=== PATIENT | female | born 1935 | race Caucasian/White ===

== ENCOUNTER → 2017-01-12 | Outpatient (CLI) | payer MEDICARE, BC ==
--- NOTE | 2017-01-13 09:46 | NM ---
EXAMINATION TYPE: NM bone scan whole body DATE OF EXAM: 01/12/2017 2:25 PM COMPARISON: NONE HISTORY: Osteoarthritis, M 16.11 Delayed whole-body scanning was performed following the injection of 25.4 mCi Tc 99m MDP. Images acq uired 3 hours post injection. FINDINGS: Soft tissue uptake is normal. Uptake present within the level of the greater trochanters could be due to underlying bursitis. There is uptake within the feet, ankles, knees, elbows, hands, shoulders and spine which is likely degenerative. IMPRESSION: Findings compatible with osteoarthritis and likely degenerative disc disease. Additional findings abo ve.
== END ==
LOC: RADNMMAIN 10:30
PROVIDERS: ATTEND Orthopaedic Surgery
DX: M25.551 Pain in right hip (principal); M70.61 Trochanteric bursitis, right hip
CPT/HCPCS: 78306; A9503

== ENCOUNTER 2018-08-20 14:29 | Inpatient (IN) | payer MEDICARE, BC ==
[2018-08-20] MEDS ORDERED: SODIUM CHLORIDE 0.9% 1,000 ML IV STA (14:55)
[2018-08-20] MEDS ORDERED: MORPHINE SULFATE 4 MG/ML SYRINGE IV STA (14:55)
[2018-08-20] MEDS ORDERED: ONDANSETRON 4 MG/2 ML VIAL IVP STA (14:55)
--- NOTE | 2018-08-20 15:17 | ED ---
Abdominal Pain HPI - General Chief Complaint: Abdominal Pain Stated Complaint: Vomitting, Diarrhea Time Seen by Provider: 08/20/18 14:36 Source: patient, EMS, RN notes reviewed Mode of arrival: EMS Limitations: no limitations - History of Present Illness Initial Comments: Patient 83-year-old female presented to the emergency room today with a chief complaint of symptoms of nausea vomiting diarrhea per patient states that she ate a donut at a social gathering this afternoon. She states proximal half hour later began having some symptoms of nausea and vomiting. States she had several bouts. States she was able to get home. Patient states that when she got home she began having diarrhea. She states that she noticed do so she called 911. Patient does admit that the nausea is somewhat improved. She states she still expresses abdominal pain starting on the right side of the abdomen going across. She describes it as sharp. Currently rates it a 9/10. Denies any other complaints. Patient denies any recent fever, chills, shortness of breath, chest pain, numbness or tingling, dysuria or hematuria, constipation , headaches or visual changes, or any other complaints. - Related Data Home Medications Medication Instructions Recorded Confirmed Ezetimibe [Zetia] 10 mg PO DAILY 07/14/16 08/20/18 Multivit-Min/Iron/Folic/Lutein 1 tab PO DAILY 07/14/16 08/20/18 [Centrum Silver Women Tablet] [place]-3 Fatty Acids/Fish Oil [Fish 1 cap PO BID 07/14/16 08/20/18 Oil 1,000 mg Softgel] Simvastatin [Zocor] 80 mg PO DAILY 07/14/16 08/20/18 glipiZIDE [Glucotrol] 5 mg PO DAILY 07/14/16 08/20/18 Insuln Asp Prt/Insulin Aspart 36 unit SQ HS 09/03/16 08/20/18 [NovoLOG MIX 70-30 VIAL] Insuln Asp Prt/Insulin Aspart 38 units SQ QAM 09/03/16 08/20/18 [NovoLOG MIX 70-30 VIAL] ALPRAZolam [Xanax] 0.25 mg PO BID 08/20/18 08/20/18 Donepezil [Aricept] 5 mg PO DAILY 08/20/18 08/20/18 Levothyroxine Sodium [Synthroid] 75 mcg PO DAILY 08/20/18 08/20/18 Omeprazole/Sodium Bicarbonate 1 tab PO DAILY 08/20/18 08/20/18 [Omeprazole-Bicarb 20-1,100 Cap] Allergies Allergy/AdvReac Type Severity Reaction Status Date / Time niacin Allergy the Verified 08/20/18 14:47 [From [place] feeling of Extended-Release] burning inside acetaminophen AdvReac Itching Verified 08/20/18 14:47 [From Darvocet-N] propoxyphene AdvReac Itching Verified 08/20/18 14:47 [From Darvocet-N] paper tape Allergy Rash/Hives Uncoded 08/20/18 14:38 Review of Systems ROS Statement: Those systems with pertinent positive or pertinent negative responses have been documented in the HPI. ROS Other: All systems not noted in ROS Statement are negative. 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 History of Any Multi-Drug Resistant Organisms: None Reported Past Surgical History: Appendectomy, Hysterectomy, Orthopedic Surgery, Tonsillectomy Additional Past Surgical History / Comment(s): 07/16/16 Acromioplasty excision distal end clavicle and rotator cuff repair L shoulder. Other surgical hx: Bilateral cataract removal, bilateral surgery for occular hemorrhages. Past Anesthesia/Blood Transfusion Reactions: No Reported Reaction Past Psychological History: No Psychological Hx Reported Smoking Status: Never smoker Past Alcohol Use History: Rare Past Drug Use History: None Reported - Past Family History Brother(s) Family Medical History: Cancer Additional Family Medical History / Comment(s): lung Mother Family Medical History: Deep Vein Thrombosis (DVT) Additional Family Medical History / Comment(s): Mother after gastric surgery when she developed a DVT that traveled. She at the age of 54 yrs. Father History Unknown: Yes General Exam - General Exam Comments Initial Comments: General: The patient is awake and alert, in no distress, and does not appear acutely ill. Eye: There is normal conjunctiva bilaterally. No signs of icterus. Ears, nose, mouth and throat: There are moist mucous membranes and no oral lesions. Neck: The neck is supple, there is no tenderness or JVD. Cardiovascular: There is a regular rate and rhythm. No murmur, rub or gallop is appreciated. Respiratory: Lungs are clear to auscultation, respirations are non-labored, breath sounds are equal. No wheezes, stridor, rales, or rhonchi. Gastrointestinal: Abdomen soft on palpation. Patient does have tenderness right lower quadrant. No rebound, guarding. Mild right-sided CVA tenderness. Musculoskeletal: Normal ROM, no tenderness. Strength 5/5. Sensation intact. Pulses equal bilaterally 2+. Neurological: A&O x 3. CN II-XII intact, There are no obvious motor or sensory deficits. Coordination appears grossly intact. Speech is normal. Skin: Skin is warm and dry and no rashes or lesions are noted. Psychiatric: Cooperative, appropriate mood & affect, normal judgment. Limitations: no limitations Course Vital Signs 08/20/18 14:35 Temperature 97.4 F L Pulse Rate 63 Respiratory 18 Rate Blood Pressure 138/61 O2 Sat by Pulse 97 Oximetry Medical Decision Making - Medical Decision Making Patient's CT reviewed and does show evidence for cholecystitis. Patient's labs been reviewed and no elevated white count. No fever. Patient resting comfortably at this time. Case was discussed with attending physician Dr. Jc who did discuss with on-call surgeon Dr. Rodriguez recommends ultrasound, Unasyn, and will admit the patient to the hospital. Patient is resting comfortable at this time pain-free. - Lab Data Result diagrams: 08/20/18 15:33 08/20/18 15:33 Lab Results 08/20/18 08/20/18 Range/Units 15:33 15:33 WBC 5.5 (3.8-10.6) k/uL RBC 4.30 (3.80-5.40) m/uL Hgb 12.8 (11.4-16.0) gm/dL Hct 38.8 (34.0-46.0) % MCV 90.3 (80.0-100.0) fL MCH 29.7 (25.0-35.0) pg MCHC 32.9 (31.0-37.0) g/dL RDW 13.9 (11.5-15.5) % Plt Count 123 L (150-450) k/uL Neutrophils % 74 % Lymphocytes % 17 % Monocytes % 5 % Eosinophils % 2 % Basophils % 0 % Neutrophils # 4.1 (1.3-7.7) k/uL Lymphocytes # 1.0 (1.0-4.8) k/uL Monocytes # 0.3 (0-1.0) k/uL Eosinophils # 0.1 (0-0.7) k/uL Basophils # 0.0 (0-0.2) k/uL Sodium 143 (137-145) mmol/L Potassium 4.7 (3.5-5.1) mmol/L Chloride 105 (98-107) mmol/L Carbon Dioxide 30 (22-30) mmol/L Anion Gap 8 mmol/L BUN 22 H (7-17) mg/dL Creatinine 1.40 H (0.52-1.04) mg/dL Est GFR (CKD-EPI)AfAm 40 (>60 ml/min/1.73 sqM) Est GFR (CKD-EPI)NonAf 35 (>60 ml/min/1.73 sqM) Glucose 139 H (74-99) mg/dL Calcium 9.4 (8.4-10.2) mg/dL Total Bilirubin 0.9 (0.2-1.3) mg/dL AST 63 H (14-36) U/L ALT 39 (9-52) U/L Alkaline Phosphatase 153 H (38-126) U/L Total Protein 7.2 (6.3-8.2) g/dL Albumin 4.0 (3.5-5.0) g/dL Amylase 56 (30-110) U/L Lipase 106 (23-300) U/L Disposition Clinical Impression: Cholecystitis Disposition: ADMITTED IP TO THIS HOSP Condition: Good Instructions: Cholecystitis (ED) Is patient prescribed a controlled substance at d/c from ED?: No Referrals: Raj España MD [Primary Care Provider] - 1-2 days Time of Disposition: 17:07
[2018-08-20 15:44] LABS: Basophils % (A) 0 %; Eosinophils # (A) 0.1 k/uL (0-0.7); Eosinophils % (A) 2 %; HCT 38.8 % (34.0-46.0); HGB 12.8 gm/dL (11.4-16.0); Lymphocytes % (A) 17 %; MCH 29.7 pg (25.0-35.0); MCHC 32.9 g/dL (31.0-37.0); MCV 90.3 fL (80.0-100.0); Mean Platelet Volume 7.6; Monocytes # (A) 0.3 k/uL (0-1.0); Monocytes % (A) 5 %; Neutrophils # (A) 4.1 k/uL (1.3-7.7); Neutrophils % (A) 74 %; Platelet Count 123 k/uL (150-450); RDW 13.9 % (11.5-15.5); WBC 5.5 k/uL (3.8-10.6)
[2018-08-20 15:52] LABS: Calcium 9.4 mg/dL (8.4-10.2); Potassium 4.7 mmol/L (3.5-5.1); Total Bilirubin 0.9 mg/dL (0.2-1.3); Total Protein 7.2 g/dL (6.3-8.2)
--- NOTE | 2018-08-20 16:42 | CT ---
EXAMINATION TYPE: CT abdomen pelvis wo con DATE OF EXAM: 08/20/2018 COMPARISON: None HISTORY: RUQ pain CT DLP: 869.8 mGycm Automated exposure control for dose reduction was used. TECHNIQUE: Helical acquisition of images was performed from the lung bases through the pelvis. FINDINGS: There is coarse interstitial infiltrate and atelectasis at the lung bases. There is no pleural effusi on. There is minimal pleural thickening. There are calcified splenic linear densities consistent with vascular calcification. Liver shows no focal defect. Gallbladder is dilated and measures 5.1 cm. Atif e ducts are not dilated. Spleen is markedly enlarged and measures 19.5 cm. There is no evidence of a pancreatic mass. There is no adrenal mass. Kidneys have normal size and contour. There is no hydronephrosis. I see no evidence of a renal mass. Ureters are not dilated. There is no retroperitoneal adenopathy. There is s mall umbilical hernia that contains fat. Appendix is not seen. There is no sign of appendicitis. Bladder distends smoothly. There is no inguinal hernia. There is no free fluid in the pelvis. There a re multiple sigmoid diverticula. There is no sign of diverticulitis. The bony pelvis is intact. Lumba r spine is intact. There is no compression fracture. Abdominal aorta is atheromatous. There is no mes enteric edema or adenopathy. IMPRESSION: THERE IS DILATED GALLBLADDER CONSISTENT WITH CHOLECYSTITIS. NO DILATED DUCTS. MODERATELY SEVERE SPLENOMEGALY.
[2018-08-20] MEDS ORDERED: AMPICILLIN-SULBACTAM 3 GM in SODIUM CHLORIDE 0.9% 100 ML IVPB STA (17:01)
[2018-08-20] MEDS ORDERED: SODIUM CHLORIDE 0.9% 1,000 ML IV ONE (17:07)
[2018-08-20] MEDS ORDERED: NALOXONE 0.4 MG/ML 1 ML VIAL IV PRN (17:07)
[2018-08-20] MEDS ORDERED: ONDANSETRON 4 MG/2 ML VIAL IVP PRN (17:07)
[2018-08-20 17:26] LABS: Amorphous Sediment,Urine Rare /hpf; Appearance,Urine Clear (Clear); Bacteria,Urine Rare /hpf; Bilirubin,Urine Negative (Negative); Blood,Urine Negative (Negative); Color,Urine Yellow; Glucose,Urine (UA) Negative (Negative); Ketones,Urine Negative (Negative); Leukocyte Esterase,Urine Negative (Negative); Mucus,Urine Rare /hpf; Nitrite,Urine Negative (Negative); PH, Urine 6.5 (5.0-8.0); Protein,Urine 2+ (Negative); RBC,Urine 1 /hpf (0-5); Specific Gravity,Urine 1.008 (1.001-1.035); Squamous Epithelial Cell,Urine 4 /hpf (0-4)
[2018-08-20 18:28] VITALS: BMI 46.0
[2018-08-20 20:39] LABS: Glucose,Whole Blood 94 mg/dL (75-99)
[2018-08-20] MEDS: INSULIN ASPART 100 UNIT/ML 1 ML 10 ML VIAL SQ SCH (20:45)
[2018-08-20] MEDS: ALPRAZolam 0.25 MG TAB PO SCH (20:48)
[2018-08-20] MEDS: AMPICILLIN-SULBACTAM 3 GM in SODIUM CHLORIDE 0.9% 100 ML IVPB SCH (23:32)
[2018-08-21] MEDS: LEVOTHYROXINE 75 MCG TAB PO SCH (05:17)
[2018-08-21] MEDS: AMPICILLIN-SULBACTAM 3 GM in SODIUM CHLORIDE 0.9% 100 ML IVPB SCH ×3 (05:19→20:39)
[2018-08-21 07:04] LABS: Glucose,Whole Blood 92 mg/dL (75-99)
--- NOTE | 2018-08-21 08:40 | XR ---
EXAMINATION TYPE: XR chest 2V DATE OF EXAM: 08/21/2018 COMPARISON: 09/06/2016 TECHNIQUE: PA and lateral views submitted. HISTORY: Preop FINDINGS: The lungs are clear and there is no pneumothorax, pleural effusion, or focal pneumonia. Arthropathy of the shoulders. Somewhat coarsened interstitium. No overt failure. IMPRESSION: 1. No acute process. Slightly coarsened central interstitium can be seen with chronic interstitial venu ng disease correlate clinically.
[2018-08-21] MEDS: glipiZIDE 5 MG TAB PO SCH (08:54)
[2018-08-21] MEDS: INSULIN ASPART 100 UNIT/ML 1 ML 10 ML VIAL SQ SCH ×4 (08:54→20:39)
[2018-08-21] MEDS: ALPRAZolam 0.25 MG TAB PO SCH ×2 (08:54→20:55)
[2018-08-21] MEDS: PANTOPRAZOLE 40 MG TABLET PO SCH (08:54)
[2018-08-21] MEDS: MORPHINE SULFATE 4 MG/ML SYRINGE IV PRN ×2 (09:03→17:49)
--- NOTE | 2018-08-21 09:42 | US ---
EXAMINATION TYPE: US abdomen limited DATE OF EXAM: 08/21/2018 COMPARISON: CT 08/20/2018 CLINICAL HISTORY: Pain. EXAM MEASUREMENTS: Liver Length: 18.1 cm Gallbladder Wall: 0.2 cm CBD: 0.7 cm Right Kidney: 9.7 x 4.3 x 3.6 cm Pancreas: Obscured by bowel gas Liver: Enlarged, heterogeneous. Slightly nodular contour Gallbladder: Sludge visualized, distended Evidence for sonographic Ba's sign: No CBD: wnl as visualized Right Kidney: No hydronephrosis or masses seen IMPRESSION: 1. Moderate fatty infiltration of the liver. 2. Hepatomegaly. 3. Sludge within the gallbladder.
[2018-08-21 10:01] LABS: HCT 38.5 % (34.0-46.0); HGB 12.3 gm/dL (11.4-16.0); MCH 29.7 pg (25.0-35.0); MCV 92.7 fL (80.0-100.0); RBC 4.15 m/uL (3.80-5.40)
[2018-08-21 10:02] LABS: Basophils % (A) 0 %; Eosinophils # (A) 0.1 k/uL (0-0.7); Eosinophils % (A) 3 %; Lymphocytes # (A) 0.9 k/uL (1.0-4.8); Lymphocytes % (A) 23 %; Mean Platelet Volume 7.2; Monocytes # (A) 0.2 k/uL (0-1.0); Monocytes % (A) 4 %; Neutrophils # (A) 2.7 k/uL (1.3-7.7); Neutrophils % (A) 68 %; Platelet Count 141 k/uL (150-450); RDW 14.1 % (11.5-15.5)
--- NOTE | 2018-08-21 10:23 | P.GSHP ---
History of Present Illness H&P Date: 08/21/18 83-year-old female presented to the emergency room with a chief complaint of developing a sudden onset of right upper quadrant abdominal pain with a nausea sensation with vomiting with diarrhea. Patient stated that she had several episodes of social gathering after eating a doughnut patient stated that she went home had several episodes at home prior to coming into the emergency room. Describes it as a sharp stabbing pain. 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 History of Any Multi-Drug Resistant Organisms: None Reported Past Surgical History: Appendectomy, Hysterectomy, Orthopedic Surgery, Tonsillectomy Additional Past Surgical History / Comment(s): 07/16/16 Acromioplasty excision distal end clavicle and rotator cuff repair L shoulder. Other surgical hx: Bilateral cataract removal, bilateral surgery for occular hemorrhages. Past Anesthesia/Blood Transfusion Reactions: No Reported Reaction Past Psychological History: No Psychological Hx Reported Additional Psychological History / Comment(s): Pt resides alone. She ambulates with a walker. She doesn't drive-her lydia or friends take her to appts. Smoking Status: Never smoker Past Alcohol Use History: Rare Past Drug Use History: None Reported - Past Family History Brother(s) Family Medical History: Cancer Additional Family Medical History / Comment(s): lung Mother Family Medical History: Deep Vein Thrombosis (DVT) Additional Family Medical History / Comment(s): Mother after gastric surgery when she developed a DVT that traveled. She at the age of 54 yrs. Father History Unknown: Yes Medications and Allergies Home Medications Medication Instructions Recorded Confirmed Type Ezetimibe [Zetia] 10 mg PO DAILY 07/14/16 08/20/18 History Multivit-Min/Iron/Folic/Lutein 1 tab PO DAILY 07/14/16 08/20/18 History [Centrum Silver Women Tablet] [employer]-3 Fatty Acids/Fish Oil [Fish 1 cap PO BID 07/14/16 08/20/18 History Oil 1,000 mg Softgel] Simvastatin [Zocor] 80 mg PO DAILY 07/14/16 08/20/18 History glipiZIDE [Glucotrol] 5 mg PO DAILY 07/14/16 08/20/18 History Insuln Asp Prt/Insulin Aspart 36 unit SQ HS 09/03/16 08/20/18 History [NovoLOG MIX 70-30 VIAL] Insuln Asp Prt/Insulin Aspart 38 units SQ QAM 09/03/16 08/20/18 History [NovoLOG MIX 70-30 VIAL] ALPRAZolam [Xanax] 0.25 mg PO BID 08/20/18 08/20/18 History Donepezil [Aricept] 5 mg PO DAILY 08/20/18 08/20/18 History Levothyroxine Sodium [Synthroid] 75 mcg PO DAILY 08/20/18 08/20/18 History Omeprazole/Sodium Bicarbonate 1 tab PO DAILY 08/20/18 08/20/18 History [Omeprazole-Bicarb 20-1,100 Cap] Allergies Allergy/AdvReac Type Severity Reaction Status Date / Time niacin Allergy the Verified 08/20/18 14:47 [From [place] feeling of Extended-Release] burning inside acetaminophen AdvReac Itching Verified 08/20/18 14:47 [From Darvocet-N] propoxyphene AdvReac Itching Verified 08/20/18 14:47 [From Darvocet-N] paper tape Allergy Rash/Hives Uncoded 08/20/18 14:38 Surgical - Exam Vital Signs Temp Pulse Resp BP Pulse Ox 97.4 F L 63 18 138/61 97 08/20/18 14:35 08/20/18 14:35 08/20/18 14:35 08/20/18 14:35 08/20/18 14:35 GENERAL APPEARANCE:83 -year-old female sitting up in a chair alert, oriented, in no acute distress. States continues to have right upper quadrant abdominal discomfort VITAL SIGNS: Reviewed HEENT: Head is normocephalic and atraumatic. Pupils are equal and reactive. The nares are patent. Oropharynx is clear without lesions. NECK: Supple without lymphadenopathy. Traches midline. HEART: S1, S2. Regular rate and rhythm. No murmur denying chest pain LUNGS: No crackles or wheezes are heard.] Air movement bilaterally ABDOMEN: Soft, obese mild tenderness right upper quadrant nondistended with good bowel sounds. No peritoneal signs. No palpable organomegaly or masses. EXTREMITIES: Normal skin color and turgor. No cyanosis, rash, ulceration, clubbing or edema. Radial pedal pulses are 2/4 bilaterally. NEUROLOGICAL: No focal deficits. Strength and sensation are grossly intact. Results - Labs 08/21/18 08:09 08/20/18 15:33 Abnormal Lab Results - Last 24 Hours (Table) 08/20/18 08/20/18 08/20/18 Range/Units 15:33 15:33 17:11 Plt Count 123 L (150-450) k/uL Lymphocytes # (1.0-4.8) k/uL BUN 22 H (7-17) mg/dL Creatinine 1.40 H (0.52-1.04) mg/dL Glucose 139 H (74-99) mg/dL AST 63 H (14-36) U/L Alkaline Phosphatase 153 H (38-126) U/L Urine Protein 2+ H (Negative) Amorphous Sediment Rare H (None) /hpf Urine Bacteria Rare H (None) /hpf Urine Mucus Rare H (None) /hpf 08/21/18 Range/Units 08:09 Plt Count 141 L (150-450) k/uL Lymphocytes # 0.9 L (1.0-4.8) k/uL BUN (7-17) mg/dL Creatinine (0.52-1.04) mg/dL Glucose (74-99) mg/dL AST (14-36) U/L Alkaline Phosphatase (38-126) U/L Urine Protein (Negative) Amorphous Sediment (None) /hpf Urine Bacteria (None) /hpf Urine Mucus (None) /hpf Microbiology - Last 24 Hours (Table) 08/20/18 17:11 Urine Culture - Preliminary Urine,Voided Diabetes panel 08/20/18 Range/Units 15:33 Sodium 143 (137-145) mmol/L Potassium 4.7 (3.5-5.1) mmol/L Chloride 105 (98-107) mmol/L Carbon Dioxide 30 (22-30) mmol/L BUN 22 H (7-17) mg/dL Creatinine 1.40 H (0.52-1.04) mg/dL Glucose 139 H (74-99) mg/dL Calcium 9.4 (8.4-10.2) mg/dL AST 63 H (14-36) U/L ALT 39 (9-52) U/L Alkaline Phosphatase 153 H (38-126) U/L Total Protein 7.2 (6.3-8.2) g/dL Albumin 4.0 (3.5-5.0) g/dL Calcium panel 08/20/18 Range/Units 15:33 Calcium 9.4 (8.4-10.2) mg/dL Albumin 4.0 (3.5-5.0) g/dL Pituitary panel 08/20/18 Range/Units 15:33 Sodium 143 (137-145) mmol/L Potassium 4.7 (3.5-5.1) mmol/L Chloride 105 (98-107) mmol/L Carbon Dioxide 30 (22-30) mmol/L BUN 22 H (7-17) mg/dL Creatinine 1.40 H (0.52-1.04) mg/dL Glucose 139 H (74-99) mg/dL Calcium 9.4 (8.4-10.2) mg/dL Adrenal panel 08/20/18 Range/Units 15:33 Sodium 143 (137-145) mmol/L Potassium 4.7 (3.5-5.1) mmol/L Chloride 105 (98-107) mmol/L Carbon Dioxide 30 (22-30) mmol/L BUN 22 H (7-17) mg/dL Creatinine 1.40 H (0.52-1.04) mg/dL Glucose 139 H (74-99) mg/dL Calcium 9.4 (8.4-10.2) mg/dL Total Bilirubin 0.9 (0.2-1.3) mg/dL AST 63 H (14-36) U/L ALT 39 (9-52) U/L Alkaline Phosphatase 153 H (38-126) U/L Total Protein 7.2 (6.3-8.2) g/dL Albumin 4.0 (3.5-5.0) g/dL Assessment and Plan Assessment: Impression Present on admission right upper quadrant abdominal pain with nausea vomiting suspect due to acute cholecystitis Computed tomography scan abdomen pelvis on admission show evidence of cholecystitis mordid Obesity BMI 46 Ultrasound of the abdomen report reviewed show sludge within the gallbladder Plan Keep nothing by mouth scheduled today for laparoscopic cholecystectomy per surgical services recommendations IV fluid for hydration DVT and GI prophylaxis IV Unasyn as ordered DVT and GI prophylaxis Further surgical recommendations pending The above impression and plan of care have been discussed and directed by signing physician. Sanaz Cary nurse practitioner acting as scribe for signing physician.
[2018-08-21 10:44] LABS: Albumin 3.4 g/dL (3.5-5.0); Calcium 8.7 mg/dL (8.4-10.2); Potassium 4.4 mmol/L (3.5-5.1); Total Bilirubin 0.6 mg/dL (0.2-1.3); Total Protein 6.6 g/dL (6.3-8.2)
--- NOTE | 2018-08-21 11:02 | P.CONS ---
History of Present Illness - Reason for Consult Consult date: 08/21/18 medical management Requesting physician: Keyur Longoria - Chief Complaint abdominal pain - History of Present Illness 83-year-old female with a past medical history significant for hyperlipidemia, hypertension, osteoarthritis, diabetes and hypothyroidism, who presented to the emergency room with a chief complaint of abdominal pain. The patient states she was playing cards with a group of friends yesterday. She reports she was feeling well during the day and in the weeks prior. She ate half of a doughnut and a few sips of coffee and immediately went to the bathroom and started vomiting. She reports 3-4 episodes of vomiting. She states she later had an episode of diarrhea once she returned home. She complained of generalized abdominal pain in the emergency room but this morning complains of right upper quadrant pain only. She has had no further episodes of nausea, vomiting, or diarrhea since coming to the hospital. She does complain of mid back pain this morning. She has a history of chronic lumbar pain back. She denies SOB, chest pain, fever, or chills. CT abdomen and pelvis reveals dilated gallbladder measuring 5.1 cm. Bile ducts are not dilated. Consistent with cholecystitis. Spleen is markedly enlarged and measures 19.5 cm. No evidence of a pancreatic mass. Laboratory data upon admission revealed white count 5.5. Hemoglobin 12.8. Platelet count 123. Sodium 143. Potassium 4.7. BUN 22. Creatinine 1.40. AST 63. ALT 39. Amylase 56. Lipase 106. Urinalysis reveals: 2+ protein, rare bacteria, rare mucus. The patient was admitted to the hospital under the care of Dr. Mark. Consultations were placed to Dr. España, her PCP, for medical management. REVIEW OF SYSTEMS: Those systems with pertinent positive or pertinent negative responses have been documented in the HPI PHYSICAL EXAM: GENERAL: This is a 83-year-old female in no apparent distress at the time of examination. Pleasant and cooperative. HEENT: Head is atraumatic, normocephalic. Pupils are equal, round, and reactive to light. Sclerae anicteric. Conjunctivae are clear. Mucus membranes of the mouth are moist. Neck is supple. RESPIRATORY: Clear to auscultation. No wheezes, rales, or rhonchi. No use of accessory muscles. Patient maintaining oxygen saturation greater than 92%. No chest wall tenderness is noted on palpation or with deep breathing. CARDIOVASCULAR: Regular rate and rhythm. S1 and S2 noted. No systolic or diastolic murmur auscultated. No JVD noted. No S3 or S4 noted. GASTROINTESTINAL: Obese. No distention noted. Abdomen soft and round. Normal active bowel sounds auscultated x 4 quadrants. Pain and tenderness noted about palpation of right upper quadrant. INTEGUMENTARY: No cyanosis. No jaundice. No rashes noted. No cellulitis noted. EXTREMITIES: 2+ peripheral pulses. No evidence of peripheral edema. No calf tenderness noted. NEUROLOGIC: Cranial nerves II-XII intact. PSYCHIATRIC: Awake, alert, and oriented X 3. Appropriate affect. Intact judgement and insight. ASSESSMENT: Right upper quadrant pain, nausea and vomiting after eating a donut, and a single episode of diarrhea, CT reveals dilated gallbladder measuring 5.1cm consistent with cholecystitis Diabetes mellitus, type II Hyperlipidemia Hypertension Osteoarthritis Hypothyroidism History of appendectomy Splenomegaly, measuring 19.5 cm CKD, creatinine 1.40 on admission, GFR 35 Morbid obesity: BMI 46.1 PLAN: Continue care per Dr. Mark. Await further recommendations Obtain baseline EKG and chest xray NPO Pain control Home meds as appropriate Monitor labs GI prophylaxis: Protonix 40 mg PO Daily DVT prophylaxis: SCDs to bilateral LE Monitor vital signs and address as appropriate Discharge planning: Patient to return home when stable Further recommendations pending patient's course Nurse practitioner note has been reviewed by physician. Signing provider agrees with the documented findings, assessment, and plan of care. 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 History of Any Multi-Drug Resistant Organisms: None Reported Past Surgical History: Appendectomy, Hysterectomy, Orthopedic Surgery, Tonsillectomy Additional Past Surgical History / Comment(s): 07/16/16 Acromioplasty excision distal end clavicle and rotator cuff repair L shoulder. Other surgical hx: Bilateral cataract removal, bilateral surgery for occular hemorrhages. Past Anesthesia/Blood Transfusion Reactions: No Reported Reaction Past Psychological History: No Psychological Hx Reported Additional Psychological History / Comment(s): Pt resides alone. She ambulates with a walker. She doesn't drive-her lydia or friends take her to [employer]. Smoking Status: Never smoker Past Alcohol Use History: Rare Past Drug Use History: None Reported - Past Family History Brother(s) Family Medical History: Cancer Additional Family Medical History / Comment(s): lung Mother Family Medical History: Deep Vein Thrombosis (DVT) Additional Family Medical History / Comment(s): Mother after gastric surgery when she developed a DVT that traveled. She at the age of 54 yrs. Father History Unknown: Yes Medications and Allergies Home Medications Medication Instructions Recorded Confirmed Type Ezetimibe [Zetia] 10 mg PO DAILY 07/14/16 08/20/18 History Multivit-Min/Iron/Folic/Lutein 1 tab PO DAILY 07/14/16 08/20/18 History [Centrum Silver Women Tablet] [place]-3 Fatty Acids/Fish Oil [Fish 1 cap PO BID 07/14/16 08/20/18 History Oil 1,000 mg Softgel] Simvastatin [Zocor] 80 mg PO DAILY 07/14/16 08/20/18 History glipiZIDE [Glucotrol] 5 mg PO DAILY 07/14/16 08/20/18 History Insuln Asp Prt/Insulin Aspart 36 unit SQ HS 09/03/16 08/20/18 History [NovoLOG MIX 70-30 VIAL] Insuln Asp Prt/Insulin Aspart 38 units SQ QAM 09/03/16 08/20/18 History [NovoLOG MIX 70-30 VIAL] ALPRAZolam [Xanax] 0.25 mg PO BID 08/20/18 08/20/18 History Donepezil [Aricept] 5 mg PO DAILY 08/20/18 08/20/18 History Levothyroxine Sodium [Synthroid] 75 mcg PO DAILY 08/20/18 08/20/18 History Omeprazole/Sodium Bicarbonate 1 tab PO DAILY 08/20/18 08/20/18 History [Omeprazole-Bicarb 20-1,100 Cap] Allergies Allergy/AdvReac Type Severity Reaction Status Date / Time niacin Allergy the Verified 08/20/18 14:47 [From Niaspan feeling of Extended-Release] burning inside acetaminophen AdvReac Itching Verified 08/20/18 14:47 [From Darvocet-N] propoxyphene AdvReac Itching Verified 08/20/18 14:47 [From Darvocet-N] paper tape Allergy Rash/Hives Uncoded 08/20/18 14:38 Physical Exam Vitals: Vital Signs Temp Pulse Pulse Resp BP BP Pulse Ox 08/21/18 07:15 98.4 F 74 18 122/63 92 L 08/21/18 07:14 18 88 L 08/20/18 23:45 98.7 F 63 16 151/74 94 L 08/20/18 20:37 97.6 F 56 L 16 148/82 96 08/20/18 18:08 97.8 F 74 16 149/71 98 08/20/18 14:35 97.4 F L 63 18 138/61 97 Intake and Output 08/20/18 08/21/18 08/21/18 22:59 06:59 14:59 Intake Total 800 Balance 800 Intake: Intake, IV Titration 800 Amount Sodium Chloride 0.9% 1, 800 000 ml @ 100 mls/hr IV . Q10H ONE Rx#:[id number] Other: # Voids 1 1 # Bowel Movements 1 Weight 118 kg Results CBC & Chem 7: 08/21/18 08:09 08/21/18 08:09 Labs: Abnormal Lab Results - Last 24 Hours (Table) 08/20/18 08/20/18 08/20/18 Range/Units 15:33 15:33 17:11 Plt Count 123 L (150-450) k/uL BUN 22 H (7-17) mg/dL Creatinine 1.40 H (0.52-1.04) mg/dL Glucose 139 H (74-99) mg/dL AST 63 H (14-36) U/L Alkaline Phosphatase 153 H (38-126) U/L Urine Protein 2+ H (Negative) Amorphous Sediment Rare H (None) /hpf Urine Bacteria Rare H (None) /hpf Urine Mucus Rare H (None) /hpf Microbiology - Last 24 Hours (Table) 08/20/18 17:11 Urine Culture - Preliminary Urine,Voided
[2018-08-21 11:38] LABS: Glucose,Whole Blood 120 mg/dL (75-99)
[2018-08-21] MEDS ORDERED: IV FLUID CONTINUATION 1,000 ML IV ONE (13:30)
[2018-08-21] MEDS: HEPARIN SODIUM,PORCINE 5,000 UNIT/ML 1 ML VIAL SQ SCH ×2 (13:37→23:55)
[2018-08-21] MEDS ORDERED: ONDANSETRON 4 MG/2 ML VIAL IVP ONE (13:45)
[2018-08-21] MEDS ORDERED: DEXAMETHASONE SOD PHOSPHATE 10 MG/ML 1 ML VIAL IV ONE (13:46)
[2018-08-21] MEDS ORDERED: ePHEDrine SULFATE/0.9% NACL/PF 50 MG/5 ML SYRINGE IV ONE (14:55)
[2018-08-21] MEDS ORDERED: PROPOFOL 10 MG/ML 20 ML VIAL IV ONE (14:55)
[2018-08-21] MEDS ORDERED: fentaNYL (PF) 50 MCG/ML 2 ML AMP ONE (14:55)
[2018-08-21] MEDS ORDERED: LIDOCAINE 1% INJ 10MG/ML (20 ML MDV) ONE (14:55)
[2018-08-21] MEDS ORDERED: SUCCINYLCHOLINE CHLORIDE 100 MG/5 ML SYR IV ONE (14:55)
[2018-08-21] MEDS ORDERED: GLYCOPYRROLATE 0.2 MG/ML 2 ML VIAL ONE (14:55)
[2018-08-21] MEDS ORDERED: NEOSTIGMINE 1 MG/ML 10 ML VIAL ONE (14:55)
[2018-08-21] MEDS ORDERED: BUPIVACAIN-EPI 0.25%-1:200,000 30 ML VIAL SQ ONE ×2 (15:17→15:21)
[2018-08-21 16:19] LABS: Glucose,Whole Blood 178 mg/dL (75-99)
[2018-08-21] MEDS ORDERED: SODIUM CHLORIDE 0.9% 1,000 ML IV ONE (17:00)
--- NOTE | 2018-08-21 17:37 | P.OP ---
Date of Procedure: 08/21/18 Preoperative Diagnosis: Cholecystitis Postoperative Diagnosis: Cholecystitis Cholelithiasis Cirrhosis Intrahepatic gallbladder Procedure(s) Performed: Laparoscopic cholecystectomy Anesthesia: REA Surgeon: Stanley Mark Estimated Blood Loss (ml): 10 Pathology: other (Gallbladder) Condition: stable Disposition: PACU Description of Procedure: The patient was placed on the operating table. The patient received a general endotracheal tube anesthesia. The patients abdomen was prepped and draped in the usual sterile fashion. Through an infraumbilical stab incision, the fascia of the anterior abdominal wall was grasped with a pair of Kochers and then the Veress needle was placed in the peritoneal cavity. Position of the Veress needle was confirmed with positive drop test. The abdomen was then insufflated. After adequate insufflation, the 10 mm trocar was placed in the peritoneal cavity. Following this the laparoscope was placed in the peritoneal cavity. The patient was placed in the head-up, right side up position and then a 5 mm trocar was placed in the right lateral and right subcostal position under direct visualization. A 8 mm trocar was placed in the epigastric position. The liver was cirrhotic. The gallbladder was intrahepatic deep within the liver. The liver was quite cirrhotic and firm. The gallbladder was quite tense. The gallbladder could not be grasped due to it being firm. Using Harmonic scissors a small opening was made in the dome of the gallbladder and the gallbladder was aspirated. The gallbladder was grasped in the fundus and infundibulum. Traction on the gallbladder was placed in the lateral and the cephalad positions. The triangle of Calot was visualized.. The cystic duct was bluntly dissected until the union of the cystic duct and common bile duct was seen. The cystic duct was then divided and sealed with the Harmonic scissors. A PDS Endoloop was then placed around the cystic duct stump. The cystic artery divided and sealed with the Harmonic scissors. The gallbladder was then removed from the liver bed using Harmonic scissors. The gallbladder was quite deep within the liver. It was intrahepatic. The gallbladder was then extracted through the epigastric port site. Operative field was checked for any bleeding spots and Harmonic scissors was used to coagulate the liver bed. The abdomen was irrigated. The trocars were removed. The skin was closed using interrupted 3-0 Vicryl suture. Dermabond dressing were applied. The patient tolerated the procedure well.
[2018-08-21 17:45] LABS: Glucose,Whole Blood 193 mg/dL (75-99)
[2018-08-21 20:06] LABS: Glucose,Whole Blood 277 mg/dL (75-99)
[2018-08-22] VITALS: RESP 20
[2018-08-22] MEDS: LEVOTHYROXINE 75 MCG TAB PO SCH (05:30)
[2018-08-22 06:55] LABS: Glucose,Whole Blood 236 mg/dL (75-99)
[2018-08-22] MEDS: INSULIN ASPART 100 UNIT/ML 1 ML 10 ML VIAL SQ SCH ×2 (07:32→12:43)
[2018-08-22] MEDS: PANTOPRAZOLE 40 MG TABLET PO SCH (07:32)
[2018-08-22] MEDS: glipiZIDE 5 MG TAB PO SCH (07:32)
--- NOTE | 2018-08-22 07:55 | PN ---
PROGRESS NOTE The patient had her gallbladder removed last p.m. by Dr. Mark. She feels good. No shortness of breath. No chest pain last p.m. Again, this is an 83-year-old white female who came to emergency room with sudden onset of right upper quadrant pain with nausea sensation, vomiting and diarrhea. The patient states that several episodes of social gathering are eating a donut and this caused her discomfort. At that time, her pain was severe and came to the emergency room. On the CAT scan was found to have sludge in the gallbladder, was confirmed by ultrasound. Dr. Mark took her down and removed the gallbladder without apparent complication. PAST HISTORY: Diabetes mellitus, GERD, hyperlipidemia, hypertension, osteoarthritis, pneumonia, thyroid disorder. She has type 2 diabetes and some hypothyroid disease. She has had multiple hemorrhages in the eye and is being taken care of by a retinal specialist. PAST SURGERIES: Past surgeries are appendectomy, hysterectomy. She has had multiple orthopedic surgeries and a tonsillectomy. She has had no reaction to anesthesia. She never smoked. She never drank. FAMILY HISTORY: Family history of cancer, fibromyalgia. Mother had deep vein thrombosis and from that after gastric surgery. MEDICATIONS: Medications are Zetia 10 mg a daily. She takes a Centrum vitamin. She takes a 1000 mg of omega-3 twice a day. She takes glipizide 5 mg b.i.d., Zocor 80 mg daily. Insulin 70/30, she was on 36 units at bedtime and 38 in the morning. She takes Xanax 0.25 daily, Aricept 5 mg a day and 75 mcg of Synthroid, omeprazole or Zegerid she takes daily. ALLERGIES: She has some allergies to DARVOCET, PAPER , and NAPROSYN. PHYSICAL EXAMINATION: At this time, her vital signs are stable with a blood pressure of 138/80, heart rate is in the 80s, temperature is 98, and her O2 is 94 on no oxygen. No lab repeated, but her sugars are trending up at 277. At this time, she is being discharged home in good condition. She will follow up with me in 5 days in my office. MEDICATIONS ON DISCHARGE: 1. Xanax 0.25 twice a day. 2. Glipizide 5 mg twice a day. 3. We are going to send her home on insulin 70/30 at 18 in the morning and 18 at night. 4. Zetia 10 daily. 5. Aricept 5 daily. 6. 0.75 daily. 7. Zegerid daily. 8. Bi[place] 1000 mg b.i.d. She will follow up in my office. Activities limited per Dr. Mark. MMBELEM / RAINA: [id number] /
[2018-08-22 08:11] VITALS: BP 147/77; PULSE 79; TEMP 98.3
[2018-08-22] MEDS: HEPARIN SODIUM,PORCINE 5,000 UNIT/ML 1 ML VIAL SQ SCH (08:50)
[2018-08-22] MEDS: AMPICILLIN-SULBACTAM 3 GM in SODIUM CHLORIDE 0.9% 100 ML IVPB SCH (08:50)
[2018-08-22] MEDS: ALPRAZolam 0.25 MG TAB PO SCH (08:50)
[2018-08-22 10:05] LABS: Albumin 3.2 g/dL (3.5-5.0); Calcium 8.3 mg/dL (8.4-10.2); Total Bilirubin 0.5 mg/dL (0.2-1.3)
[2018-08-22 11:36] LABS: Glucose,Whole Blood 223 mg/dL (75-99)
--- NOTE | 2018-08-22 12:19 | P.DS ---
Providers Date of admission: 08/20/18 17:34 Expected date of discharge: 08/22/18 Attending physician: Stanley Mark Consults: 08/20/18 17:07 Consult Physician Stat Consulting Provider: Raj España Reason/Comments: Medical clearance Do you want consulting provider notified?: Yes Primary care physician: Raj España [facility] Course: 83-year-old female presented with a sudden onset of right upper quadrant abdominal pain nausea sensation with vomiting and diarrhea. Patient stated that she has had several episodes prior to coming to the emergency room described it as sharp and stabbing. The pain is in the right upper quadrant radiated across. Patient was admitted to the services of the attending. Patient underwent on August 21 laparoscopic cholecystectomy for intrahepatic gallbladder, cirrhosis, cholelithiasis, cholecystitis postop no events. Patient is up ambulatory on the unit. Pain medication effective for pain control. Surgical dressings dry. Impression discharge diagnosis Laparoscopic cholecystectomy for intrahepatic gallbladder, cirrhosis , cholecystitis, cholelithiasis done on August 21 Present on admission right upper quadrant abdominal pain with nausea vomiting suspect due to acute cholecystitis Computed tomography scan abdomen pelvis on admission show evidence of cholecystitis mordid Obesity BMI 46 Ultrasound of the abdomen report reviewed show sludge within the gallbladder The above impression and plan of care have been discussed and directed by signing physician. Sanaz Cary nurse practitioner acting as scribe for signing physician. Patient Condition at Discharge: Good Plan - Discharge Summary Discharge Rx Participant: No New Discharge Prescriptions: New glipiZIDE [Glucotrol] 5 mg PO AC-BID #60 tab HYDROcodone/APAP 5-325MG [[place] 5-325] 1 tab PO Q6HR PRN 3 Days #12 tab PRN Reason: Mild Discomfort Continue Simvastatin [Zocor] 80 mg PO DAILY Ezetimibe [Zetia] 10 mg PO DAILY [place]-3 Fatty Acids/Fish Oil [Fish Oil 1,000 mg Softgel] 1 cap PO BID Multivit-Min/Iron/Folic/Lutein [Centrum Silver Women Tablet] 1 tab PO DAILY Donepezil [Aricept] 5 mg PO DAILY Levothyroxine Sodium [Synthroid] 75 mcg PO DAILY ALPRAZolam [Xanax] 0.25 mg PO BID Omeprazole/Sodium Bicarbonate [Omeprazole-Bicarb 20-1,100 Cap] 1 tab PO DAILY Changed Insuln Asp Prt/Insulin Aspart [NovoLOG MIX 70-30 VIAL] 17 units SQ QAM #1 vial Insuln Asp Prt/Insulin Aspart [NovoLOG MIX 70-30 VIAL] 17 unit SQ HS #1 vial Discontinued glipiZIDE [Glucotrol] 5 mg PO DAILY Discharge Medication List Ezetimibe [Zetia] 10 mg PO DAILY 07/14/16 [History] Multivit-Min/Iron/Folic/Lutein [Centrum Silver Women Tablet] 1 tab PO DAILY 10/28 [History] [place]-3 Fatty Acids/Fish Oil [Fish Oil 1,000 mg Softgel] 1 cap PO BID 07/14/16 [ History] Simvastatin [Zocor] 80 mg PO DAILY 07/14/16 [History] ALPRAZolam [Xanax] 0.25 mg PO BID 08/20/18 [History] Donepezil [Aricept] 5 mg PO DAILY 08/20/18 [History] Levothyroxine Sodium [Synthroid] 75 mcg PO DAILY 08/20/18 [History] Omeprazole/Sodium Bicarbonate [Omeprazole-Bicarb 20-1,100 Cap] 1 tab PO DAILY [History] HYDROcodone/APAP 5-325MG [[place] 5-325] 1 tab PO Q6HR PRN 3 Days #12 tab [Rx] Insuln Asp Prt/Insulin Aspart [NovoLOG MIX 70-30 VIAL] 17 unit SQ HS #1 vial 07/30 [Rx] Insuln Asp Prt/Insulin Aspart [NovoLOG MIX 70-30 VIAL] 17 units SQ QAM #1 vial 08/22/18 [Rx] glipiZIDE [Glucotrol] 5 mg PO AC-BID #60 tab 08/22/18 [Rx] Follow up Appointment(s)/Referral(s): [facility], [NON-STAFF] - Raj España MD [Primary Care Provider] - 08/28/18 Stanley Mark MD [STAFF PHYSICIAN] - 1 Week Patient Instructions/Handouts: Cholecystitis (ED) Activity/Diet/Wound Care/Special Instructions: No tub bath for six weeks. Shower daily. No lifting over 10 pounds for the next 2 weeks. Do not remove the plastic surgical dressings they will be removed and a follow- up surgical visit May use ice packs to surgical site. No driving while taking narcotic for pain. Discharge Disposition: HOME SELF-CARE
--- NOTE | 2018-08-24 11:27 | CDI ---
Documentation Clarification Form Date: 08/24/18 From: Aleah Chris Tamie Diamond, Thermal Cutting Tracer Machine Operator Hours-8:30 am & 5 pm MMauricio Admit Date: 08/20/2018 5:34:00 PM Patient Name: Edwina Clancy Visit Number: [id number] Discharge Date: 08/22/2018 1:30:00 PM ATTENTION: The Clinical Documentation Specialists (CDI) and [facility] Coding Staff appreciate your assistance in clarifying documentation. Please respond to the clarification below the line at the bottom and electronically sign. The CDI & [facility] Coding staff will review the response and follow-up if needed. Please note: Queries are made part of the Legal Health Record. If you have any questions, please contact the author of this message via ITS. Dr. Stanley Fanania The final diagnosis of the pathology report states: Chronic and acute cholecystitis, no calculi identified. Documentation states: OP states cholecystitis, cholelithiasis Patient history/risk factors: HTN w CKD, DM, morbid obesity Treatment: Lap mary In your professional opinion, do you agree with the pathology report specifying chronic and acute cholecystitis wo cholelithiasis? Yes No Other (please specify) Unable to determine Unable to determine, per the patient's ultrasound there is sludge in the gallbladder. MTDD
== END 2018-08-22 13:30 | disposition home health service (06) | DRG 418 ==
LOC: EC 14:29 → 4SSUR 17:34
PROVIDERS: ADMIT Surgery; ATTEND Surgery
PROC: 0FT44ZZ Resection of Gallbladder, Percutaneous Endoscopic Approach (ICD-10-PCS; principal; 2018-08-21 11:40)
DX: K80.10 Calculus of gallbladder with chronic cholecystitis without obstruction (principal); Q44.1 Other congenital malformations of gallbladder; Z68.42 Body mass index [BMI] 45.0-49.9, adult; E11.22 Type 2 diabetes mellitus with diabetic chronic kidney disease; K74.60 Unspecified cirrhosis of liver; E66.01 Morbid (severe) obesity due to excess calories; K21.9 Gastro-esophageal reflux disease without esophagitis; E03.9 Hypothyroidism, unspecified; E78.5 Hyperlipidemia, unspecified; M19.90 Unspecified osteoarthritis, unspecified site; Z79.890 Hormone replacement therapy; Z79.4 Long term (current) use of insulin; Z79.899 Other long term (current) drug therapy; Z88.5 Allergy status to narcotic agent; Z87.01 Personal history of pneumonia (recurrent); Z90.710 Acquired absence of both cervix and uterus; Z90.49 Acquired absence of other specified parts of digestive tract; Z98.42 Cataract extraction status, left eye; Z98.41 Cataract extraction status, right eye; Z88.8 Allergy status to other drugs, medicaments and biological substances; Z91.048 Other nonmedicinal substance allergy status; Z80.1 Family history of malignant neoplasm of trachea, bronchus and lung; Z83.2 Family history of diseases of the blood and blood-forming organs and certain disorders involving the immune mechanism; Z83.79 Family history of other diseases of the digestive system; I12.9 Hypertensive chronic kidney disease with stage 1 through stage 4 chronic kidney disease, or unspecified chronic kidney disease; N18.9 Chronic kidney disease, unspecified; M54.5 Low back pain; R16.1 Splenomegaly, not elsewhere classified
CPT/HCPCS: 36415; 71046; 74176; 76705; 80053; 81001; 82150; 83690; 85025; 87086; 88304; 94760; 96361; 96365; 96375; 99285

== ENCOUNTER 2021-09-22 14:46 | Emergency (ER) | payer MEDICARE, BC ==
[2021-09-22 16:02] VITALS: PULSE 69
--- NOTE | 2021-09-22 17:25 | ED ---
URI HPI - General Chief Complaint: Upper Respiratory Infection Stated Complaint: Covid +, wants BAM Time Seen by Provider: 09/22/21 16:59 Source: patient, RN notes reviewed Mode of arrival: wheelchair Limitations: no limitations - History of Present Illness Initial Comments: This is a pleasant 86-year-old female with a history of diabetes mellitus, hyperlipidemia, GERD, and hypertension. Patient presents to the emergency department today complaining of mild body aches, possible low-grade subjective fever, mild dry cough, and mild diarrhea. Patient's states that the symptoms started yesterday. Patient has about a for COVID-19 here in the triage area. Patient denies any significant shortness of breath. Patient was sent by her regular physician for the monoclonal antibody infusion. No headache, no changes in vision or hearing, no sore throat or difficulty with speech, no neck pain, no chest pain or shortness of breath, no abdominal pain, no nausea or vomiting, no changes in urination or bowel movements, no numbness or tingling, no extremity pain, no skin rashes or lesions. - Related Data Home Medications Medication Instructions Recorded Confirmed Ezetimibe [Zetia] 10 mg PO DAILY 07/14/16 08/20/18 Multivit-Min/Iron/Folic/Lutein 1 tab PO DAILY 07/14/16 08/20/18 [Centrum Silver Women Tablet] [place]-3 Fatty Acids/Fish Oil [Fish 1 cap PO BID 07/14/16 08/20/18 Oil 1,000 mg Softgel] Simvastatin [Zocor] 80 mg PO DAILY 07/14/16 08/20/18 ALPRAZolam [Xanax] 0.25 mg PO BID 08/20/18 08/20/18 Donepezil [Aricept] 5 mg PO DAILY 08/20/18 08/20/18 Levothyroxine Sodium [Synthroid] 75 mcg PO DAILY 08/20/18 08/20/18 Omeprazole/Sodium Bicarbonate 1 tab PO DAILY 08/20/18 08/20/18 [Omeprazole-Bicarb 20-1,100 Cap] Previous Rx's Medication Instructions Recorded HYDROcodone/APAP 5-325MG [[place] 1 tab PO Q6HR PRN 3 Days #12 tab 08/22/18 5-325] Insuln Asp Prt/Insulin Aspart 17 unit SQ HS #1 vial 08/22/18 [NovoLOG MIX 70-30 VIAL] Insuln Asp Prt/Insulin Aspart 17 units SQ QAM #1 vial 08/22/18 [NovoLOG MIX 70-30 VIAL] glipiZIDE [Glucotrol] 5 mg PO AC-BID #60 tab 08/22/18 Allergies Allergy/AdvReac Type Severity Reaction Status Date / Time amoxicillin Allergy Rash/Hives Verified 09/22/21 16:03 niacin Allergy the Verified 09/22/21 16:02 [From [place] feeling of Extended-Release] burning inside acetaminophen AdvReac Itching Verified 09/22/21 16:02 [From Darvocet-N] propoxyphene AdvReac Itching Verified 09/22/21 16:02 [From Darvocet-N] paper tape Allergy Rash/Hives Uncoded 08/21/18 13:42 Review of Systems ROS Statement: Those systems with pertinent positive or pertinent negative responses have been documented in the HPI. ROS Other: All systems not noted in ROS Statement are negative. 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 History of Any Multi-Drug Resistant Organisms: None Reported Past Surgical History: Appendectomy, Hysterectomy, Orthopedic Surgery, Tonsillectomy Additional Past Surgical History / Comment(s): 07/16/16 Acromioplasty excision distal end clavicle and rotator cuff repair L shoulder. Other surgical hx: Bilateral cataract removal, bilateral surgery for occular hemorrhages. Past Anesthesia/Blood Transfusion Reactions: No Reported Reaction Past Psychological History: No Psychological Hx Reported Smoking Status: Never smoker Past Alcohol Use History: Rare Past Drug Use History: None Reported - Past Family History Brother(s) Family Medical History: Cancer Additional Family Medical History / Comment(s): lung Mother Family Medical History: Deep Vein Thrombosis (DVT) Additional Family Medical History / Comment(s): Mother after gastric surgery when she developed a DVT that traveled. She at the age of 54 yrs. Father History Unknown: Yes General Exam - General Exam Comments Initial Comments: Nontoxic-appearing elderly female in no acute distress. Patient does not appear to be ill or toxic. Vital signs stable, patient afebrile. Oxygen saturation is normal on room air. No evidence of respiratory distress. Limitations: no limitations General appearance: alert, in no apparent distress Head exam: Present: atraumatic, normocephalic, normal inspection Eye exam: Present: normal appearance, PERRL, EOMI. Absent: scleral icterus, conjunctival injection, periorbital swelling ENT exam: Present: normal exam, mucous membranes moist Neck exam: Present: normal inspection. Absent: tenderness, meningismus, lymphadenopathy Respiratory exam: Present: normal lung sounds bilaterally. Absent: respiratory distress, wheezes, rales, rhonchi, stridor Cardiovascular Exam: Present: regular rate, normal rhythm, normal heart sounds. Absent: systolic murmur, diastolic murmur, rubs, gallop, clicks GI/Abdominal exam: Present: soft, normal bowel sounds. Absent: distended, tenderness, guarding, rebound, rigid Extremities exam: Present: normal inspection, full ROM, normal capillary refill. Absent: tenderness, pedal edema, joint swelling, calf tenderness Back exam: Present: normal inspection Neurological exam: Present: alert, oriented X3, CN II-XII intact Psychiatric exam: Present: normal affect, normal mood Skin exam: Present: warm, dry, intact, normal color. Absent: rash Course Vital Signs 09/22/21 09/22/21 09/22/21 15:57 17:20 17:30 Temperature 98.9 F Pulse Rate 69 69 Respiratory 19 16 18 Rate Blood Pressure 157/70 169/71 O2 Sat by Pulse 96 95 Oximetry Medical Decision Making - Medical Decision Making Vaccinated elderly female presents with symptoms consistent with mild COVID-19 infection. Patient received a booster in July. Patient only has mild symptom. Monoclonal antibody infusion ordered. Quarantine measures discussed in detail. All questions answered. Patient was told to return to the ER for any signs or symptoms worsen. Told to return immediately if any other problems arise. All questions answered. Treatment plan discussed. 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 Please maintain social distance of 6 feet if possible. You should not return to work until at least 3 days (72 hours) have passed since recovery of symptoms. This defined as resolution of fever without the use of fever reducing medicines and improvement in respiratory symptoms (e.g,, cough, shortness of breath) and, At least 5 days have passed since symptoms first appeared. More information about what to do if you are sick can be found on the CDC website at https://www.cdc.gov/coronavirus/2019-ncov/sl-csz-rcu-sick/cqizt-lxin-wrwc.html Expect the symptoms to last for 7-14 days from onset. Use acetaminophen (Tylenol) as needed for discomfort. You can take a maximum of 1 gram every 6 hours for discomfort, with your total dose in 24 hours not exceeding 4 grams. Be sure to maintain hydration. Drink continuous water and/or items high in vitamin C, such as orange juice and/or lemonade. For a cough you may take Mucinex or Robitussin. Also consider the use of Vicks Vapor Rub or your chest when you sleep. Use a humidifier that is cleaned frequently, in the bedroom at night. For Nausea /Vomiting/Diarrhea associated with your Illness: o Small frequent sips of room temperature liquids. o Diet: [place] Foods - If you are still experiencing discomfort and/or nausea please slowly advancing your diet using the BRAT Diet = bananas, rice, apples/apple sauce, toast. o With diarrhea avoid any dairy for 48 hours after symptoms resolved. o Continue with activity as tolerated. If your symptoms do get worse and you believe that the upper respiratory infection has developed into something else, such as pneumonia or severe dehydration, please return to the emergency department or follow-up with your primary care. But expect to be symptomatic for the days as indicated above Follow-up with your regular physician by phone. Call tomorrow to check in. Is patient prescribed a controlled substance at d/c from ED?: No Referrals: Suad Coleman MD [Primary Care Provider] - 09/25/21 Time of Disposition: 17:24 Decision Time: 17:24
[2021-09-22] MEDS ORDERED: SODIUM CHLORIDE 0.9% 50 ML IVPB ONE (17:30)
[2021-09-22 17:42] LABS: Glucose,Whole Blood 247 mg/dL (75-99)
[2021-09-22 17:43] VITALS: RESP 18
[2021-09-22] MEDS ORDERED: CASIRIVIMAB (REGN10933) (EUA) 600 MG, IMDEVIMAB (REGN10987) (EUA) 600 MG in SODIUM CHLO... IVPB ONE (18:00)
[2021-09-22 19:27] VITALS: BP 187/77; TEMP 97.8
== END 2021-09-22 19:21 | disposition home or self-care (01) ==
LOC: EC 14:46
DX: U07.1 COVID-19 (principal); J00 Acute nasopharyngitis [common cold]; B34.9 Viral infection, unspecified; E11.9 Type 2 diabetes mellitus without complications; K21.9 Gastro-esophageal reflux disease without esophagitis; E78.5 Hyperlipidemia, unspecified; Z91.048 Other nonmedicinal substance allergy status; Z79.02 Long term (current) use of antithrombotics/antiplatelets; Z79.83 Long term (current) use of bisphosphonates; Z88.0 Allergy status to penicillin; Z88.3 Allergy status to other anti-infective agents; Z88.6 Allergy status to analgesic agent; Z88.5 Allergy status to narcotic agent
CPT/HCPCS: 99283; 36415; 87635; Q0244